=== PATIENT | male | born 1950 | race Caucasian/White ===

== ENCOUNTER 2019-03-20 23:33 | Emergency (ER) | payer MEDICARE, MEDICAID ==
[~2019-03-20] VITALS: Ht 175.3 cm; Wt 99.7 kg
[2019-03-21 00:25] VITALS: BP 135/88
== END 2019-03-21 01:23 | disposition home or self-care (01) ==
LOC: ED 03-21 00:39
DX: J02.8 Acute pharyngitis due to other specified organisms (principal); B97.89 Other viral agents as the cause of diseases classified elsewhere; R05 Cough; E11.9 Type 2 diabetes mellitus without complications; F17.200 Nicotine dependence, unspecified, uncomplicated
CPT/HCPCS: 71046; 99283